=== PATIENT | male | born 1995 | race Caucasian/White ===

== ENCOUNTER → 2016-10-09 | Outpatient (CLI) | payer BC, OTHER ==
[~2016-10-09] MED LIST: IBUP-1459 PO
--- NOTE | 2016-10-09 11:52 | DIAGNOSTIC IMAGING REPORT ---
CT MASTOIDS-ORB/SELLA/TEMP W/O CT DOSE: 678.56 mGy.cm CLINICAL HISTORY: Right tympanic membrane granuloma. Otorrhea. TECHNIQUE: Helical images were acquired in the transverse plane. Sagittal and coronal reformatted images were acquired. COMPARISON STUDY: None. FINDINGS: There is a left maxillary sinus retention cyst. There is decreased pneumatization of the right mastoid as compared to the left. The internal auditory canals appear symmetric. There is nasal septal deviation to the right. The scutum appears intact bilaterally. There is nodular thickening involving the posterior aspect of the right tympanic membrane. The middle ear ossicles appear unremarkable. No abnormalities of the cochlea or semicircular canals are visualized. IMPRESSION: Nodular thickening involving the posterior aspect of the right tympanic membrane Electronically signed by: Augustus Conrad M.D. 10/09/2016 11:51 AM Dictated Date/Time: 10/09/2016 11:47 AM
== END | disposition home or self-care (01) ==
LOC: C.CTS 11:05
DX: H71.11 Cholesteatoma of tympanum, right ear (principal); H92.10 Otorrhea, unspecified ear; H90.11 Conductive hearing loss, unilateral, right ear, with unrestricted hearing on the contralateral side

== ENCOUNTER 2017-01-07 00:21 | Emergency (ER) | payer BC, OTHER ==
[~2017-01-07] VITALS: Ht 182.9 cm; Wt 105.6 kg
[2017-01-07 00:32] VITALS: TEMP 36.7; Ht 182.9 cm; Wt 105.6 kg
[2017-01-07] MEDS ORDERED: IBUP-1459 PO (00:40)
--- NOTE | 2017-01-07 00:59 | EMERGENCY ROOM VISIT NOTE ---
ED Visit Note First contact with patient: 00:36 CHIEF COMPLAINT: Finger injury HISTORY OF PRESENT ILLNESS: This 21 yo patient presents to the emergency department after injuring the left finger, pinky. The patient rates the pain as throbbing and 5/10. The patient has full range of motion of the finger. No numbness or tingling. No lacerations. No other injuries. The patient has not had previous fracture to this finger. The patient has taken Ibuprofen for the pain. Patient was playing volleyball and the ball hit his pinky finger. He is unsure if it hyperextended. This is yesterday. REVIEW OF SYSTEMS: A 6 system review of systems was completed with positives and pertinent negatives in the HPI. ALLERGIES: Zithromax once a day for 4 more days. MEDICATIONS: none PMH: Seasonal allergies SOCIAL HISTORY: no Drug use PHYSICAL EXAM: Vital Signs: Reviewed Nurse's notes, vital signs stable. GENERAL : Pleasant Male, in no acute distress, but appears to be in pain, well-developed , well-nourished. MUSCULOSKELETAL: There is no deformity of the left fifth finger. The patient has limited flexion and extension of the left fifth finger and decreased strength to resistance is likely secondary to pain. The PP joint is maximally tender. There is no ligamentous instability. There is no laceration. Capillary refill less than 2 seconds. No tenderness of the remaining fingers or hand. Full range of motion of the wrist. NEURO: Alert and oriented to person, place, and time. Normal sensation to light and sharp touch. EMERGENCY DEPARTMENT COURSE: I examined the patient. An x-ray of the left fifth finger was reviewed by myself and my attending and showed no fracture. Patient was placed in a metal splint for comfort and neurovascular status is rechecked after placement and is intact. Patient was advised take Motrin for the pain and follow-up family care in a few days or here in the ER sooner for severe pain , numbness, tingling, worsening signs or symptoms or as needed.. The patient was discharged home in good condition. DIAGNOSIS: left 5th finger injury DISCHARGE INSTRUCTIONS: Ibuprofen(Motrin, Advil) may be used for fever or pain. Use 600mg every six hours as needed. Take with food. Avoid using more than 2400mg in a 24 hour period. Do not use 2400mg per day for more than three consecutive days without physician direction. Prolonged inappropriate use can lead to stomach upset or ulcers. This medication can be taken if you need to drive, work, or perform activities which may be dangerous when taking narcotic pain medication. (AND/OR) Acetaminophen(Tylenol) may be used for fever or pain. Use 1000mg every six hours as needed. Avoid using more than 3000mg in a 24 hour period. This medication can be taken if you need to drive, work, or perform activities which may be dangerous when taking narcotic pain medication. Ice compresses for 20 minutes at a time four times daily for 2-3 days. Rest and elevate your injury. Wear splint for comfort for the next week. Do not have it so tight that you cannot feel your finger. Continue current medications. Return to the ER immediately for any numbness, tingling, severe pain, extreme swelling in the extremity or as needed. Call Orthopedics 3-5 days if symptoms persist to arrange follow up for your injury. Current/Historical Medications Scheduled PRN Ibuprofen (Motrin), 400 MG PO Q6H PRN for Pain Allergies Coded Allergies: Azithromycin (Verified Allergy, Intermediate, FULL BODY HIVES, 01/07/17) Vital Signs Date Time Temp Pulse Resp B/P Pulse Ox O2 Delivery O2 Flow Rate FiO2 01/07/17 00:32 36.7 62 19 137/86 97 Room Air Departure Information Referrals Juliano Andino M.D. (PCP) Patient Instructions My [facility]
[2017-01-07 01:10] VITALS: BP 126/70; PULSE 70; O2SAT 98
--- NOTE | 2017-01-07 07:56 | DIAGNOSTIC IMAGING REPORT ---
LEFT FIFTH FINGER 3 VIEWS CLINICAL HISTORY: Volleyball injury to the fifth finger. FINDINGS: 3 views of the left fifth finger are obtained. No prior studies are available for comparison at the time of dictation. The skeletal structures are well mineralized. No fracture is seen. The fifth metacarpophalangeal and interphalangeal joints are well-maintained. The overlying soft tissues are within normal limits. IMPRESSION: Unremarkable radiographic assessment of the left fifth finger. Electronically signed by: Joselo Dale M.D. 01/07/2017 7:55 AM Dictated Date/Time: 01/07/2017 7:54 AM
== END 2017-01-07 01:11 | disposition home or self-care (01) ==
LOC: C.EDB 00:24
DX: S69.92XA Unspecified injury of left wrist, hand and finger(s), initial encounter (principal); X58.XXXA Exposure to other specified factors, initial encounter; Y93.68 Activity, volleyball (beach) (court); Z88.3 Allergy status to other anti-infective agents

== ENCOUNTER → 2017-01-13 | Outpatient (CLI) | payer BC, OTHER ==
[~2017-01-13] MED LIST changes: +IBUP-1277 PO
--- NOTE | 2017-01-13 09:23 | DIAGNOSTIC IMAGING REPORT ---
RIGHT ANKLE MIN 3 VIEWS ROUTINE CLINICAL HISTORY: Right ankle pain status post trauma COMPARISON: None. DISCUSSION: There is a tiny age-indeterminate avulsion arising from the lateral malleolar tip. There is lateral soft tissue swelling. The ankle mortise appears intact on these nonstress views. IMPRESSION: Tiny age-indeterminate avulsion at the level of the lateral malleolar tip. Electronically signed by: Augustus Conrad M.D. 01/13/2017 9:22 AM Dictated Date/Time: 01/13/2017 9:21 AM
== END | disposition home or self-care (01) ==
LOC: C.RAD1850 09:07
PROVIDERS: ATTEND Nurse Practitioner
DX: M25.571 Pain in right ankle and joints of right foot (principal); R93.8 Abnormal findings on diagnostic imaging of other specified body structures; Z87.828 Personal history of other (healed) physical injury and trauma

== ENCOUNTER 2017-07-08 20:09 | Emergency (ER) | payer BC, OTHER ==
[~2017-07-08] VITALS: Ht 182.9 cm; Wt 105.7 kg
[~2017-07-08 20:09] MED LIST changes: -IBUP-1277 PO
[2017-07-08 20:11] VITALS: TEMP 36.6; Ht 182.9 cm; Wt 105.7 kg
[2017-07-08] MEDS ORDERED: ALUMINUM/MAGNESIUM SUSP 30 ML UDC PO STA (20:29)
[2017-07-08] MEDS ORDERED: LIDOCAINE HCL 2% VISC SOLN 20 ML UDC PO STA (20:29)
[2017-07-08] MEDS ORDERED: IBUP-1277 PO (20:37)
[2017-07-08 21:15] LABS: BASO % 0.2 %; BASO ABS # 0.02 K/uL (0-0.2); COMPLETE YES; EOS % 0.6 %; HEMATOCRIT 44.3 % (42-52); IG% 0.2 %; LYMPH % 23.1 %; LYMPH ABS # 2.56 K/uL (1.2-3.4); MEAN CELL VOLUME 88.6 fL (80-100); MEAN PLATELET VOLUME 12.5 fL (7.4-10.4); MONO % 10.2 %; NEUT % 65.7 %; PLATELET COUNT 181 K/uL (130-400); WHITE BLOOD COUNT 11.08 K/uL (4.8-10.8)
[2017-07-08 21:27] LABS: PARTIAL THROMBOPLASTIN RATIO 1.1; PROTHROMBIN TIME (PATIENT) 11.1 SECONDS (9.0-12.0)
--- NOTE | 2017-07-08 21:38 | DIAGNOSTIC IMAGING REPORT ---
SOFT TISSUE NECK CLINICAL HISTORY: Evaluate for foreign body. COMPARISON STUDY: None. FINDINGS: AP and lateral views of the neck. Prevertebral soft tissues and the epiglottis are normal in thickness. Contours of the hypopharynx are within normal limits. No radiopaque foreign bodies. The trachea is midline and is patent. The lung apices are clear. IMPRESSION: No radiopaque foreign bodies within the neck. Electronically signed by: Seferino Chen M.D. 07/08/2017 9:37 PM Dictated Date/Time: 07/08/2017 9:35 PM
--- NOTE | 2017-07-08 21:40 | DIAGNOSTIC IMAGING REPORT ---
CHEST 2 VIEWS ROUTINE HISTORY: Cough. Evaluate for pneumonia. COMPARISON: None. FINDINGS: The lungs are clear. Cardiac silhouette is normal in size. No pleural effusions. No pneumothorax. IMPRESSION: No acute process. Electronically signed by: Seferino Chen M.D. 07/08/2017 9:39 PM Dictated Date/Time: 07/08/2017 9:37 PM
[2017-07-08 21:41] LABS: ALT/SGPT 28 U/L (12-78); AST/SGOT 15 U/L (15-37); BLOOD UREA NITROGEN 8 mg/dl (7-18); BUN/CREATININE RATIO 9.1 (10-20); CALCIUM 8.6 mg/dl (8.5-10.1); CARBON DIOXIDE 29 mmol/L (21-32); CREATININE 0.87 mg/dl (0.60-1.40); GLUCOSE 90 mg/dl (70-99)
[2017-07-08 21:44] LABS: ALKALINE PHOSPHATASE 76 U/L (45-117)
[2017-07-08 22:06] LABS: CHLORIDE 103 mmol/L (98-107); POTASSIUM 3.6 mmol/L (3.5-5.1); SODIUM 140 mmol/L (136-145)
[2017-07-08 22:20] LABS: THYROID STIMULATING HORMONE 0.948 uIu/ml (0.300-4.500)
[2017-07-08 22:42] VITALS: BP 118/71; PULSE 76; O2SAT 99
[2017-07-08 22:53] LABS: URINE APPEARANCE CLEAR (CLEAR); URINE BILIRUBIN NEG (NEG); URINE COLOR DK YELLOW; URINE NITRITE NEG (NEG); URINE PH 6.5 (4.5-7.5); UROBILINOGEN NEG (NEG)
[2017-07-08 23:04] LABS: MANUAL MICROSCOPIC REQUIRED? NO; REVIEW REQ? NO
--- NOTE | 2017-07-09 00:21 | EMERGENCY ROOM VISIT NOTE ---
History Report prepared by Rob: David lopez Under the Supervision of: Dr. Corwin Martin M.D. First contact with patient: 20:21 Chief Complaint: OTHER COMPLAINT Stated Complaint: BLOOD IN SEMEN,DIARRHEA,FEELING SOMETHING STUCK IN History of Present Illness The patient is a 22 year old male who presents to the Emergency Room with multiple complaints that started yesterday. The patient reports that starting yesterday he started to experience a "stuck" sensation in his throat yesterday around 1000. He reports that he is able to eat and drink. He denies eating any abnormal foods and admits to recently eating Thanksgiving leftover food. The patient states that he has had acid reflux symptoms in the past and admits that his father had a history of acid reflux. The patient also complains of blood in his semen that occurred around 0200 when he was masturbating. He reports that this only occurred once and is unsure if it has happened before. The patient states that he typically masturbates 4 times a week and has sexual intercourse 3 -10 times a week. He reports that he has also been having sexual activity with another woman in a threesome for the last 2-3 weeks without protection. He also reports that he experienced abdominal cramping followed by diarrhea 30 minutes prior to arrival. The patient states that his bowel movement was originally solid and then was completely liquid. The patient denies testicular pain, blood in urine, bleeding anywhere else, vomiting, fever, chest pain, shortness of breath, being on antibiotics recently, traveling outside of the country, drinking from streams or lakes, urethral discharge or pain, and and urinary symptoms. He denies any history of STD. He states that he was tested previously. He also states that his new partner was also tested several months ago and was negative. Source of History: patient Onset: yesterday Position: other (global) Quality: other (global) Associated Symptoms: + abdominal pain, + diarrhea, No fevers, No chest pain , No SOB, No vomiting, No urinary symptoms Review of Systems See HPI for pertinent positives & negatives. A total of 10 systems reviewed and were otherwise negative. Past Medical & Surgical Medical Problems: (1) Broken ankle Family History Cancer Kidney disease Kidney stones Social History Smoking Status: Never Smoker Smokeless Tobacco Use: No Alcohol Use: occasionally Drug Use: none Marital Status: in relationship Housing Status: lives with significant other Occupation Status: employed Current/Historical Medications Scheduled PRN Ibuprofen (Advil), 200-800 MG PO UD PRN for Pain Allergies Coded Allergies: Azithromycin (Verified Allergy, Intermediate, FULL BODY HIVES, 01/07/17) Physical Exam Vital Signs Date Time Temp Pulse Resp B/P (MAP) Pulse Ox O2 Delivery O2 Flow Rate FiO2 07/08/17 22:42 76 20 118/71 99 07/08/17 20:11 36.6 75 18 132/76 97 Room Air Physical Exam Constitutional: Vital signs reviewed. Eyes: Pupils are equal round reactive to light. Conjunctiva are noninjected. ENT: Pharynx is clear without erythema or exudate. Mucous membranes are moist. Neck supple without meningeal signs. No thyromegaly. Respiratory: Clear to auscultation bilaterally. Breath sounds are equal bilaterally. Cardiovascular: Regular rate and rhythm. No rubs or gallops. GI: Soft, nondistended and nontender. Bowel sounds are present. : No testicular swelling or tenderness. No blood at the meatus. Musculoskeletal: No peripheral edema. No lower extremity tenderness. Integumentary: No cyanosis. Neurological: The patient is awake and alert. No focal deficits. Psychiatric: Normal affect. Medical Decision & Procedures ER Provider Diagnostic Interpretation: Radiology results as stated below per my review and the radiologist's interpretation: SOFT TISSUE NECK CLINICAL HISTORY: Evaluate for foreign body. COMPARISON STUDY: None. FINDINGS: AP and lateral views of the neck. Prevertebral soft tissues and the epiglottis are normal in thickness. Contours of the hypopharynx are within normal limits. No radiopaque foreign bodies. The trachea is midline and is patent. The lung apices are clear. IMPRESSION: No radiopaque foreign bodies within the neck. Electronically signed by: Seferino Chen M.D. 07/08/2017 9:37 PM Dictated Date/Time: 07/08/2017 9:35 PM CHEST 2 VIEWS ROUTINE HISTORY: Cough. Evaluate for pneumonia. COMPARISON: None. FINDINGS: The lungs are clear. Cardiac silhouette is normal in size. No pleural effusions. No pneumothorax. IMPRESSION: No acute process. Electronically signed by: Seferino Chen M.D. 07/08/2017 9:39 PM Dictated Date/Time: 07/08/2017 9:37 PM Laboratory Results 07/08/17 20:55 Red Blood Count 5.00, Mean Corpuscular Volume 88.6, Mean Corpuscular Hemoglobin 31.0, Mean Corpuscular Hemoglobin Concent 35.0, Mean Platelet Volume 12.5, Neutrophils (%) (Auto) 65.7, Lymphocytes (%) (Auto) 23.1, Monocytes (%) (Auto) 10.2, Eosinophils (%) (Auto) 0.6, Basophils (%) (Auto) 0.2, Neutrophils # (Auto ) 7.28, Lymphocytes # (Auto) 2.56, Monocytes # (Auto) 1.13, Eosinophils # (Auto ) 0.07, Basophils # (Auto) 0.02 07/08/17 20:55 Test 07/08/17 20:55 07/08/17 21:40 07/08/17 22:28 White Blood Count 11.08 K/uL (4.8-10.8) Red Blood Count 5.00 M/uL (4.7-6.1) Hemoglobin 15.5 g/dL (14.0-18.0) Hematocrit 44.3 % (42-52) Mean Corpuscular Volume 88.6 fL (80-100) Mean Corpuscular Hemoglobin 31.0 pg (25-34) Mean Corpuscular Hemoglobin Concent 35.0 g/dl (32-36) Platelet Count 181 K/uL (130-400) Mean Platelet Volume 12.5 fL (7.4-10.4) Neutrophils (%) (Auto) 65.7 % Lymphocytes (%) (Auto) 23.1 % Monocytes (%) (Auto) 10.2 % Eosinophils (%) (Auto) 0.6 % Basophils (%) (Auto) 0.2 % Neutrophils # (Auto) 7.28 K/uL (1.4-6.5) Lymphocytes # (Auto) 2.56 K/uL (1.2-3.4) Monocytes # (Auto) 1.13 K/uL (0.11-0.59) Eosinophils # (Auto) 0.07 K/uL (0-0.5) Basophils # (Auto) 0.02 K/uL (0-0.2) RDW Standard Deviation 40.3 fL (36.4-46.3) RDW Coefficient of Variation 12.6 % (11.5-14.5) Immature Granulocyte % (Auto) 0.2 % Immature Granulocyte # (Auto) 0.02 K/uL (0.00-0.02) Prothrombin Time 11.1 SECONDS (9.0-12.0) Prothromb Time International Ratio 1.0 (0.9-1.1) Activated Partial Thromboplast Time 28.2 SECONDS (21.0-31.0) Partial Thromboplastin Ratio 1.1 Anion Gap 8.0 mmol/L (3-11) Est Creatinine Clear Calc Drug Dose 164.5 ml/min Estimated GFR () 140.0 Estimated GFR (Non- 120.8 BUN/Creatinine Ratio 9.1 (10-20) Calcium Level 8.6 mg/dl (8.5-10.1) Total Bilirubin 0.3 mg/dl (0.2-1) Direct Bilirubin < 0.1 mg/dl (0-0.2) Aspartate Amino Transf (AST/SGOT) 15 U/L (15-37) Alanine Aminotransferase (ALT/SGPT) 28 U/L (12-78) Alkaline Phosphatase 76 U/L (45-117) Total Protein 7.9 gm/dl (6.4-8.2) Albumin 4.2 gm/dl (3.4-5.0) Thyroid Stimulating Hormone (TSH) 0.948 uIu/ml (0.300-4.500) Free Thyroxine 1.20 ng/dl (0.80-1.60) Urine Color DK YELLOW Urine Appearance CLEAR (CLEAR) Urine pH 6.5 (4.5-7.5) Urine Specific [place] 1.030 (1.000-1.030) Urine Protein TRACE (NEG) Urine Glucose (UA) NEG (NEG) Urine Ketones TRACE (NEG) Urine Occult Blood NEG (NEG) Urine Nitrite NEG (NEG) Urine Bilirubin NEG (NEG) Urine Urobilinogen NEG (NEG) Urine Leukocyte Esterase NEG (NEG) Urine WBC (Auto) 1-5 /hpf (0-5) Urine RBC (Auto) 0-4 /hpf (0-4) Urine Hyaline Casts (Auto) 1-5 /lpf (0-5) Urine Epithelial Cells (Auto) 10-20 /lpf (0-5) Urine Bacteria (Auto) NEG (NEG) Laboratory results as reviewed by me. Medications Administered Medications (Trade) Dose Ordered Sig/Katty Route Start Time Stop Time Status Last Admin Dose Admin Lidocaine HCl (Viscous Lidocaine 2% Soln) 10 ml NOW STAT PO 07/08/17 20:29 07/08/17 20:32 DC 07/08/17 21:05 10 ML Al Hydroxide/Mg Hydroxide (Maalox Susp) 30 ml NOW STAT PO 07/08/17 20:29 07/08/17 20:32 DC 07/08/17 21:05 30 ML ECG Indication: other (foreign body sensation in his throat) Rate (beats per minute): 70 Rhythm: normal sinus Findings: RBBB (incomplete), no ectopy ED Course 2022: The patient was evaluated in room B02. A complete history and physical exam was performed. 2028: Ordered Maalox susp 30 ml PO, Lidocaine HCl 10 ml PO. 2229: Upon reevaluation, the patient appeared to have improvement of his symptoms, including his foreign body sensation in his throat. I discussed tonight's findings with the patient. He verbalized agreement of the treatment plan. The patient was discharged home. Medical Decision This is a 22-year-old male who presents with multiple complaints. Differential diagnosis includes GERD, mass, foodborne illness, electrolyte abnormality, dehydration, inflammatory bowel disease, STD. I did perform a limited focused review of portions of the patient's old chart on the electronic medical record. The patient has had no recent pertinent visits to this hospital. I did evaluate the patient as noted above. The patient presents with several complaints. He has a metal spur male. He does state that he has been having sexual intercourse frequently and with a new partner over the past 2 weeks without protection. I did obtain a GC and chlamydia swab. The patient did not wish to be treated empirically and wished to wait for the swab. He also complains of a foreign body sensation to his throat but is able to eat and drink normally. Only had some diarrhea today but only had 1 episode. He has no abdominal pain or hematochezia. IV access was established. I did order and personally review the patient's 12-lead EKG and soft tissue neck/chest x-ray as described above. Urinalysis was unremarkable. I did order and review the patient's blood work as noted in the electronic medical record. His white blood cell count is very slightly elevated but this is a very nonspecific finding. I did treat the patient with a GI cocktail. On reassessment he does state he is feeling better. I did discuss the test results with him and recommended close follow up with his doctor as well as follow up with urology for his hematospermia. He was advised to avoid intercourse in the meantime and use protection should he engage in intercourse. He will try [id number] Prilosec for possible reflux. Medication Reconcilliation Current Medication List: was personally reviewed by me Blood Pressure Screening Patient's blood pressure: Elevated blood pressure Blood pressure disposition: Elevated BP felt to be situational Impression Primary Impression: Hematospermia Additional Impressions: Sensation of foreign body in throat Diarrhea Scribe Attestation The scribe's documentation has been prepared under my direct and personally reviewed by me in its entirety. I confirm that the note above accurately reflects all work, treatment, procedures, and medical decision making performed by me. Departure Information Dispostion Home / Self-Care Referrals Juliano Andino M.D. (PCP) Bernard Mcclain M.D. Forms HOME CARE DOCUMENTATION FORM, IMPORTANT VISIT INFORMATION, WORK / SCHOOL INSTRUCTIONS Patient Instructions My [facility] Additional Instructions You have been examined and treated today on an emergency basis only. This is not a substitute for, or an effort to provide, complete comprehensive medical care. It is impossible to recognize and treat all injuries or illnesses in a single emergency department visit. It is therefore important that you follow up closely with your physician and Dr. Mcclain of urology. Call as soon as possible for an appointment. Return for worsening symptoms or if you develop fever, vomiting, chest pain, shortness of breath, abdominal pain or any other concerning symptoms. Problem Qualifiers Additional Impressions: Diarrhea Diarrhea type: unspecified type Qualified Codes: R19.7 - Diarrhea, unspecified
[2017-07-12 07:21] LABS: CHLAMYDIA TRACH RNA*** NOT DETECTED (NOT DETECTED); GC (NEIS GONORRHOEAE)RNA** NOT DETECTED (NOT DETECTED)
== END 2017-07-08 22:40 | disposition home or self-care (01) ==
LOC: C.EDB 20:10
DX: R36.1 Hematospermia (principal); R09.89 Other specified symptoms and signs involving the circulatory and respiratory systems; R19.7 Diarrhea, unspecified